=== PATIENT | male | born 1975 | race Hispanic/Latino ===

== ENCOUNTER 2019-09-12 19:13 | Emergency (ER) | payer SELFPAY ==
[2019-09-12 19:55] VITALS: BP 126/86
--- NOTE | 2019-09-12 19:56 | Emergency Department Report ---
Blank Doc - Documentation Documentation: 43-year-old male that presents with bilateral leg redness and pain. Stated that symptoms started as a rash now developed redness, pain and warm to touch. HX of cellulitis to bilateral legs. This initial assessment/diagnostic orders/clinical plan/treatment(s) is/are subject to change based on patient's health status, clinical progression and re- assessment by fellow clinical providers in the ED. Further treatment and workup at subsequent clinical providers discretion. Patient/guardians urged not to elope from the ED as their condition may be serious if not clinically assessed and managed. Initial orders include: 1- Patient sent to [facility] for further evaluation and treatment 2- labs
[2019-09-12 20:41] LABS: Basophils # (Auto) 0.1 K/mm3 (0.0-0.1); Basophils % (Auto) 0.4 % (0.0-1.8); Eosinophils # (Auto) 0.2 K/mm3 (0.0-0.4); Eosinophils % (Auto) 1.2 % (0.0-4.3); Hematocrit 45.4 % (35.5-45.6); Hemoglobin 15.6 gm/dl (11.8-15.2); Lymphocytes # (Auto) 3.6 K/mm3 (1.2-5.4); Lymphocytes % (Auto) 24.9 % (13.4-35.0); Mean Corpuscular HGB Conc 34 % (32-34); Mean Corpuscular Volume 92 fl (84-94); Monocytes # (Auto) 1.1 K/mm3 (0.0-0.8); Monocytes % (Auto) 7.7 % (0.0-7.3); Platelet Count 259 K/mm3 (140-440); Red Blood Count 4.91 M/mm3 (3.65-5.03); Red Cell Distribution Width 13.6 % (13.2-15.2)
[2019-09-12 20:54] LABS: BUN/Creatinine Ratio 21; Blood Urea Nitrogen 19 mg/dL (9-20); Calcium 9.2 mg/dL (8.4-10.2); Hemolysis Index 24
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
== END 2019-09-12 23:40 | disposition home or self-care (01) ==
LOC: ED 19:13
DX: L73.9 Follicular disorder, unspecified (principal); F17.200 Nicotine dependence, unspecified, uncomplicated; Z88.2 Allergy status to sulfonamides
CPT/HCPCS: 36415; 80048; 85025

== ENCOUNTER 2019-09-20 22:10 | Emergency (ER) | payer SELFPAY ==
[2019-09-20 22:22] VITALS: BP 127/76
--- NOTE | 2019-09-21 05:30 | Vascular Lab Report ---
DUPLEX VENOUS DOPPLER LEFT LOWER EXTREMITY INDICATION: lower ext swelling and pain, history of DVT TECHNIQUE: Duplex doppler imaging was performed through the veins of the left lower extremity using v enous compression and other maneuvers. COMPARISON: None available. FINDINGS: Common Femoral vein: Negative. Superficial Femoral vein: Negative. Popliteal vein: Negative. Calf veins: Negative. Additional findings: Soft tissue edema is seen. An enlarged lymph node is seen in the left inguinal a yogesh with a length of 4.1 cm in short axis diameter of 1.6 cm. This node has a fatty hilum but has a m oderately thickened cortex. IMPRESSION: 1. No evidence of deep venous thrombosis. 2. Probably benign but rather prominent and thickened left inguinal lymph node, probably reactive. Re commend clinical correlation and follow-up. Signer Name: Mir Adams MD Signed: 09/21/2019 5:26 AM Workstation Name: [id number]
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
[2019-09-21 05:38] LABS: Basophils % (Auto) 0.4 % (0.0-1.8); Eosinophils # (Auto) 0.4 K/mm3 (0.0-0.4); Eosinophils % (Auto) 3.7 % (0.0-4.3); Hematocrit 43.4 % (35.5-45.6); Hemoglobin 14.6 gm/dl (11.8-15.2); Lymphocytes # (Auto) 2.7 K/mm3 (1.2-5.4); Lymphocytes % (Auto) 25.4 % (13.4-35.0); Mean Corpuscular HGB Conc 34 % (32-34); Mean Corpuscular Volume 94 fl (84-94); Monocytes # (Auto) 0.8 K/mm3 (0.0-0.8); Monocytes % (Auto) 7.2 % (0.0-7.3); Platelet Count 283 K/mm3 (140-440); Red Blood Count 4.63 M/mm3 (3.65-5.03); Red Cell Distribution Width 13.2 % (13.2-15.2)
[2019-09-21] MEDS ORDERED: KETOROLAC 30 MG/1 ML INJ IV ONE (05:45)
[2019-09-21 05:50] LABS: Alanine Aminotransferase 17 units/L (7-56); Albumin 3.7 g/dL (3.9-5); BUN/Creatinine Ratio 14; Blood Urea Nitrogen 14 mg/dL (9-20); Calcium 8.9 mg/dL (8.4-10.2); Hemolysis Index 18
== END 2019-09-21 07:00 | disposition home or self-care (01) ==
LOC: ED 22:10
DX: L03.115 Cellulitis of right lower limb (principal); L03.116 Cellulitis of left lower limb; F17.200 Nicotine dependence, unspecified, uncomplicated; Z98.890 Other specified postprocedural states; Z88.2 Allergy status to sulfonamides
CPT/HCPCS: 36415; 80053; 85025; 93971; 96365; 96375; 99284; J1885